=== PATIENT | male | born 1985 | race Hispanic/Latino ===

== ENCOUNTER 2017-07-03 10:57 | Emergency (ER) | payer SELFPAY ==
[~2017-07-03] VITALS: Ht 167.6 cm; Wt 82.0 kg
[2017-07-03] MEDS ORDERED: NAPROSYN500 MG PO (15:04)
[2017-07-03] MEDS ORDERED: LEVAQUIN500 MG PO (15:04)
[2017-07-03] MEDS ORDERED: NORCO1 TA1 PO (15:04)
[2017-07-03 15:16] VITALS: BP 132/77
== END 2017-07-03 15:40 | disposition home or self-care (01) | DRG 566 ==
LOC: ED 10:57
PROC: 0S9D3ZZ Drainage of Left Knee Joint, Percutaneous Approach (ICD-10-PCS; principal; 2017-07-03)
DX: M25.462 Effusion, left knee (principal); M25.562 Pain in left knee

== ENCOUNTER 2019-09-14 | Emergency (ER) | payer OTHER ==
[~2019-09-14] MED LIST: LEVAQUIN500 MG PO; NAPROSYN500 MG PO; NORCO1 TA1 PO
[2019-09-14] MEDS ORDERED: BACTRIM DS1 TAB PO (23:05)
== END 2019-09-14 23:21 | disposition home or self-care (01) | DRG 603 ==
DX: L03.011 Cellulitis of right finger (principal); S61.200A Unspecified open wound of right index finger without damage to nail, initial encounter; X58.XXXA Exposure to other specified factors, initial encounter; Y93.H2 Activity, gardening and landscaping; Y92.89 Other specified places as the place of occurrence of the external cause; Y99.0 Civilian activity done for income or pay

== ENCOUNTER 2019-10-03 | Emergency (ER) | payer SELFPAY ==
[~2019-10-03] MED LIST changes: +BACTRIM DS1 TAB PO
[2019-10-03] MEDS ORDERED: AMLODIPINE BESYL5 MG PO (21:42)
== END 2019-10-03 21:50 | disposition home or self-care (01) | DRG 151 ==
DX: R04.0 Epistaxis (principal); I10 Essential (primary) hypertension

== ENCOUNTER 2020-02-08 12:33 | Emergency (ER) | payer SELFPAY ==
[~2020-02-08] VITALS: Ht 167.6 cm; Wt 63.6 kg
[~2020-02-08 12:33] MED LIST changes: +AMLODIPINE BESYL5 MG PO
[2020-02-08 13:33] LABS: HEMATOCRIT 42.9 % (39.0-50.0); HEMOGLOBIN 14.2 g/dl (14.0-18.0); IMMATURE GRANULOCYTES 0.2 % (0.0-5.0); MEAN CELL VOLUME 94.1 fL CALC (80.0-100.0); MEAN CORPUSCULAR HGB 31.1 pG CALC (26.0-32.0); MEAN CORPUSCULAR HGB CONC 33.1 g/dL CAL (32.0-36.0); NEUT# 2.98 thou/uL (1.82-7.42); RED BLOOD COUNT 4.56 mill/uL (4.70-6.10); RED CELL DISTRI WIDTH 13.4 % (11.5-15.5)
[2020-02-08 14:03] LABS: ALBUMIN 4.3 g/dL (3.2-5.0); ALKALINE PHOSPHATASE 124 u/l (38-126); ANION GAP 11 (6-22 (CALC)); BILIRUBIN, TOTAL 0.5 mg/dL (0.0-1.4); BUN 11 mg/dL (9-20); BUN/CREATININE RATIO 13 (12-20 (CALC)); CARBON DIOXIDE 26 mmol/l (22-30); CHLORIDE 105 mmol/l (95-108); CREATININE 0.8 mg/dL (0.7-1.3); GFR > 60 ML/MIN (>=60 (CALC)); GFR FOR AFR.AMER. > 60 ML/MIN (>=60 (CALC)); POTASSIUM 4.2 mmol/l (3.5-5.1); SGOT/AST 53 u/l (17-59); SODIUM 138 mmol/l (137-146); TOTAL PROTEIN 8.8 g/dL (6.3-8.2)
[2020-02-08] MEDS ORDERED: ULTRAM50 MG PO (14:19)
[2020-02-08] MEDS ORDERED: INDOMETHACIN75 MG PO (14:19)
[2020-02-08 15:00] VITALS: BP 119/71
== END 2020-02-08 15:00 | disposition home or self-care (01) | DRG 554 ==
LOC: ED 12:33
DX: M10.021 Idiopathic gout, right elbow (principal)